=== PATIENT | male | born 1980 | race Caucasian/White ===

== ENCOUNTER 2018-01-14 11:43 | Emergency (ER) | payer SELFPAY ==
[~2018-01-14] VITALS: Ht 170.2 cm; Wt 75.0 kg
[2018-01-14 11:50] VITALS: BP 119/74; PULSE 90; RESP 16; TEMP 97.4; O2SAT 98
[2018-01-14] MEDS ORDERED: LIDOCAINE HCL 1% 50 ML VIAL XX ONE (15:00)
[2018-01-14] MEDS ORDERED: cefTRIAXone 250 MG VIAL IM ONE (15:00)
[2018-01-14] MEDS ORDERED: SODIUM CHLORIDE 0.9% FLUSH 10 ML FLUSH IVF PRN (15:00)
[2018-01-14] MEDS ORDERED: AZITHROMYCIN PWD FOR SUSP 1 GM PACKET PO ONE (15:00)
--- NOTE | 2018-01-14 15:09 | PD ---
HPI Chief Complaint: Complaint Time Seen by Provider: 14:51 Travel History International Travel<30 days: No Contact w/Intl Traveler<30days: No Traveled to known affect area: No History of Present Illness HPI 37-year-old male presents to the ED for evaluation of 2 day history of penile discharge. Patient endorses unprotected sex with a single female partner shortly before onset of symptoms. He endorses dysuria and suprapubic pain. He denies fevers, chills, nausea, vomiting, testicular pain, penile pain. He endorses distant history of chlamydia and gonorrhea. No treatment attempted at home. [facility] Past Medical History Medical History: Denies Significant Hx Tetanus Vaccination: > 5 Years Past Surgical History Surgical History: No Previous Surgery Social History Alcohol Use: No Tobacco Use: Yes Substance Use: No Allergies-Medications (Allergen,Severity, Reaction): Coded Allergies: No Known Allergies (Unverified , 01/14/18) Reported Meds & Prescriptions Reported Meds & Active Scripts Active Bactrim DS (Sulfamethoxazole-Trimethoprim) 800-160 Mg Tab 1 Tab PO BID Review of Systems Except as stated in HPI: all other systems reviewed are Neg Physical Exam Narrative GENERAL: Well-nourished, well-developed white male in no acute distress. SKIN: Focused skin assessment warm/dry. Multiple tattoos noted. HEAD: Normocephalic. EYES: No scleral icterus. No injection or drainage. NECK: Supple, trachea midline. No JVD or lymphadenopathy. CARDIOVASCULAR: Regular rate and rhythm without murmurs, gallops, or rubs. RESPIRATORY: Breath sounds equal bilaterally. No accessory muscle use. GASTROINTESTINAL: Abdomen soft, nondistended. Tender in the suprapubic area. Active bowel sounds. GENITOURINARY: Circumcised. Testes descended bilaterally without evidence of rotation. No lesions or erythema. Copious white, creamy urethral discharge. MUSCULOSKELETAL: No cyanosis, or edema. BACK: Nontender without obvious deformity. No CVA tenderness. Data Data Last Documented VS Vital Signs Date Time Temp Pulse Resp B/P (MAP) Pulse Ox O2 Delivery O2 Flow Rate FiO2 01/14/18 11:50 97.4 90 16 119/74 (89) 98 Orders Orders Urinalysis - C+S If Indicated (01/14/18 15:00) Gc And Chlamydia Pcr (01/14/18 15:00) Azithromycin Powd Pack (Zithromax Powd P (01/14/18 15:00) Ceftriaxone Inj (Rocephin Inj) (01/14/18 15:00) Sodium Chloride 0.9% Flush (Ns Flush) (01/14/18 15:00) Lidocaine 1% Inj (50 Ml) (Xylocaine 1% I (01/14/18 15:00) Lidocaine Pf 1% Inj (Xylocaine-Mpf 1% In (01/14/18 15:13) Azithromycin Powd Pack (Zithromax Powd P (01/14/18 15:14) Urine Culture (01/14/18 15:00) Ed Discharge Order (01/14/18 15:56) Labs Laboratory Tests Test 01/14/18 15:00 Urine Color LIGHT-YELLOW Urine Turbidity HAZY Urine pH 6.0 Urine Specific [place] 1.017 Urine Protein TRACE mg/dL Urine Glucose (UA) NEG mg/dL Urine Ketones NEG mg/dL Urine Occult Blood TRACE Urine Nitrite NEG Urine Bilirubin NEG Urine Urobilinogen LESS THAN 2.0 MG/DL Urine Leukocyte Esterase LARGE Urine RBC 3 /hpf Urine WBC 91 /hpf Urine Bacteria OCC /hpf Microscopic Urinalysis Comment CULTURE INDICATED MDM Medical Decision Making Medical Screen Exam Complete: Yes Emergency Medical Condition: Yes Differential Diagnosis Chlamydia versus gonorrhea versus urinary tract infection versus other STI versus other Narrative Course 37-year-old male presents to the ED for evaluation of 2 day history of penile discharge. Patient endorses unprotected sex with a single female partner shortly before onset of symptoms. He endorses dysuria and suprapubic pain. He denies fevers, chills, nausea, vomiting, testicular pain, penile pain. He endorses distant history of chlamydia and gonorrhea. Patient is afebrile on presentation. On exam there is mild suprapubic tenderness and creamy white penile discharge. Exam otherwise unremarkable. Patient agreed to empiric treatment for gonorrhea and chlamydia. UA with large leukocyte esterase, 91 WBCs, occasional bacteria. Patient's prescribed Bactrim DS twice daily 7 days. He is instructed to abstain from sex, notify all partners of symptoms, follow with the health department for test of cure and a full battery of STD testing. He indicated understanding of the instructions. He is agreeable to the care plan. The patient is stable and discharged home. Diagnosis Primary Impression: Abnormal penile discharge Additional Impression: Urinary tract infection Qualified Codes: N39.0 - Urinary tract infection, site not specified Referrals: [facility]. Additional Instructions: Rest, hydrate. Abstain from sex until test of cure has been proven at the health department. Notify all sexual partners of symptoms. Follow-up with the health department in 1 week for test of cure and a full battery of STD testing. Begin antibiotics today and take them until every pill is gone. Return to the ED for worsening symptoms or any urgent or emergent medical condition. Med/Other Pt SpecificInfo: Prescription(s) given Scripts Sulfamethoxazole-Trimethoprim (Bactrim DS) 800-160 Mg Tab 1 TAB PO BID for Infection, #14 TAB 0 Refills Prov: José Miguel Jiang MD 01/14/18 Disposition: 01 DISCHARGE HOME Condition: Stable Amina Calvillo Jan 14, 2018 15:09
[2018-01-14] MEDS ORDERED: LIDOCAINE HCL 1% PF 30 ML VIAL ONE (15:13)
[2018-01-14] MEDS ORDERED: AZITHROMYCIN PWD FOR SUSP 1 GM PACKET ONE (15:14)
[2018-01-14 15:46] LABS: BACTERIA, URINE OCC /hpf; BILIRUBIN, URINE NEG (NEG); BLOOD, URINE TRACE (NEG); GLUCOSE,URINE NEG (NEG); KETONE, URINE NEG (NEG); NITRITE,URINE NEG (NEG); URINE COLOR LIGHT-YELLOW (YELLW/STRAW); URINE LEUKOCYTE ESTERASE LARGE (NEG)
[2018-01-14] MEDS ORDERED: BACT800T5 PO (15:54)
== END 2018-01-14 16:32 | disposition home or self-care (01) ==
LOC: NEPK 11:43
DX: R36.9 Urethral discharge, unspecified (principal); N39.0 Urinary tract infection, site not specified; Z72.0 Tobacco use
CPT/HCPCS: 81001; 87086; 87491; 87591; 96372; 99283; J0696